=== PATIENT | male | born 1990 | race Caucasian/White ===

== ENCOUNTER 2020-07-17 00:50 | Inpatient (IN) | payer SELFPAY ==
[2020-07-17 00:59] VITALS: BMI 23.0
[2020-07-17 01:03] VITALS: BP 121/80; PULSE 94; RESP 18; TEMP 36.7; O2SAT 95
[2020-07-17] MEDS: hyDROXYzine 25 mg Capsule 50 MG PO (03:27)
[2020-07-17] MEDS: nicotine 2 mg Gum BUCCAL ×3 (03:27→18:17)
--- NOTE | 2020-07-17 03:28 | PC.NURSE ---
PRN VISTARIL ADMINISTERED VISTARIL 50MG PO FOR PATIENT C/O INCREASING ANXIETY. WILL MONITOR FOR MEDICATION EFFECTIVENESS.
[2020-07-17 06:00] VITALS: BP 133/82; PULSE 80; RESP 17; TEMP 36.4; O2SAT 96
[2020-07-17] MEDS: gabapentin 300 mg Capsule PO ×3 (08:51→20:36)
[2020-07-17] MEDS: nicotine 21 mg Patch 1 PATCH TRANSDERMA ×2 (08:51→15:11)
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
[2020-07-17 14:00] VITALS: BP 122/83; PULSE 98; RESP 18; TEMP 36.3; O2SAT 96
[2020-07-17] MEDS: ARIPiprazole 10 mg Tablet 20 MG PO (20:36)
[2020-07-17] MEDS: trazodone 150 mg Tablet PO (20:36)
[2020-07-17 20:38] VITALS: BP 131/87; PULSE 79; RESP 16; TEMP 36.8; O2SAT 94
[2020-07-18 06:00] VITALS: BP 118/80; PULSE 80; RESP 17; TEMP 36.7; O2SAT 97
[2020-07-18] MEDS: gabapentin 300 mg Capsule PO ×3 (09:05→20:24)
[2020-07-18] MEDS: buPROPion XL (24 HR) 150 mg Tablet PO (09:05)
[2020-07-18] MEDS: acetaminophen 325 mg Tablet 650 MG PO ×2 (09:34→15:34)
[2020-07-18] MEDS: nicotine 2 mg Gum BUCCAL ×3 (09:35→18:34)
[2020-07-18] MEDS: nicotine 21 mg Patch 1 PATCH TRANSDERMA (10:10)
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
[2020-07-18 14:00] VITALS: BP 133/84; PULSE 95; RESP 18; TEMP 37.1
[2020-07-18 19:43] VITALS: BP 120/79; PULSE 78; RESP 17; TEMP 36.4; O2SAT 97
[2020-07-18] MEDS: ARIPiprazole 10 mg Tablet 20 MG PO (20:25)
[2020-07-18] MEDS: trazodone 150 mg Tablet PO (20:25)
[2020-07-19 06:00] VITALS: BP 113/68; PULSE 77; RESP 16; TEMP 36.9; O2SAT 95
[2020-07-19] MEDS: nicotine 21 mg Patch 1 PATCH TRANSDERMA (06:01)
[2020-07-19] MEDS: gabapentin 300 mg Capsule PO (07:58)
[2020-07-19] MEDS: buPROPion XL (24 HR) 150 mg Tablet PO (07:58)
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
[2020-07-19 12:13] VITALS: BP 113/68; PULSE 77; RESP 16; TEMP 36.9; O2SAT 95
== END 2020-07-19 13:56 | disposition home or self-care (01) | DRG 885 ==
PROVIDERS: Admitting Provider Psychiatry & Neurology Psychiatry; Visit Provider Psychiatry & Neurology Psychiatry
DX: F31.9 Bipolar disorder, unspecified (principal); F43.25 Adjustment disorder with mixed disturbance of emotions and conduct; F43.11 Post-traumatic stress disorder, acute
CPT/HCPCS: 12345; 90471; 90686